=== PATIENT | female | born 1960 | race Caucasian/White ===

== ENCOUNTER 2021-09-23 10:11 | Emergency (ER) | payer OTHER, SELFPAY ==
--- NOTE | ~2021-09-23 | CT_ITS ---
EXAMINATION: CT brain wo con DATE: 09/23/2021 10:58 INDICATION: Headache. TECHNIQUE: Computed tomography (CT) of the head was performed without intravenous contrast. The mA wa s adjusted according to patient size. Iterative reconstruction technique was employed. The dose-lengt h product was 756.67 mGy-cm. COMPARISON: None FINDINGS: There are scattered areas of low attenuation in the cerebral white matter. There are bilate ral frontal subdural hematomas that are isodense and hypodense to plata matter measuring up to 9 mm in thickness on the left. There is no acute ischemic infarct or abnormal mass lesion. The ventricles ar e normal in size. There is mild mucosal thickening in the ethmoid sinuses. The mastoid air cells are normal. The orbits are normal. IMPRESSION: 1. Bilateral frontal subdural hematomas, likely subacute. 2. Moderate nonspecific cerebral white matter disease, which likely represents chronic small vessel i schemic disease. Reviewed, dictated and finalized at location [facility]. [facility] IMPRESSION: 1. Bilateral frontal subdural hematomas, likely subacute. 2. Moderate nonspecific cerebral white matter disease, which likely represents chronic small vessel ischemic disease.
[2021-09-23 10:16] VITALS: PULSE 78; RESP 18; O2SAT 99
[2021-09-23 10:23] VITALS: BP 180/110; BP 186/112
--- NOTE | 2021-09-23 10:24 | ECG_ITS ---
Measurements Intervals [place] Rate: 69 P: 15 MO: 151 QRS: -4 QRSD: 87 T: -3 QT: 370 QTc: 396 Interpretive Statements SINUS RHYTHM BORDERLINE T WAVE ABNORMALITY- ANT/INF LEADS BORDERLINE ECG Electronically Signed On 09-23-2021 12:31:08 [employer] by Kristian Michelle D.O.
[2021-09-23] MEDS: cloNIDine HCL 0.1 MG TABLET PO (10:27)
[2021-09-23] MEDS: Please add drug allergy info to patient profile. 1 EACH XX (10:32)
[2021-09-23 10:46] LABS: Basophils Percent Auto 0.6 % (0.2-1.2); Eosinophils Absolute Auto 0.1 K/mm3 (0-0.3); Eosinophils Percent Auto 1.9 % (0-4.4); Hematocrit 36.4 % (37.0-47.0); Hemoglobin 12.2 g/dL (12.0-15.0); Immature Granulocyte Absolute 0.01 K/mm3 (0.00-0.031); Immature Granulocyte Percent A 0.2 % (0-0.5); Lymphocytes Absolute Auto 1.15 K/mm3 (0.9-3.2); Lymphocytes Percent Auto 23.7 % (18.3-44.2); Mean Corpuscular HGB Conc 33.5 g/dl (32-36); Mean Corpuscular Hemoglobin 33.9 pg (26-34); Mean Corpuscular Volume 101.1 fl (80-100); Mean Platelet Volume 8.8 fl (7.4-10.4); Monocytes Absolute Auto 0.5 K/mm3 (0.1-0.6); Monocytes Percent Auto 9.5 % (2.6-8.5); Neutrophils Absolute Auto 3.1 K/mm3 (1.3-6.7); Neutrophils Percent Auto 64.1 % (45.5-73.1); Platelet Count Result 297 k/mm3 (150-375); Red Cell Distribution Width 16.8 % (11.5-14.5); White Blood Count 4.9 K/mm3 (4.5-10.0)
[2021-09-23 10:59] LABS: Alanine Aminotransferase 64 U/L (4-35); Albumin Level 4.6 g/dL (3.5-5.1); Alkaline Phosphatase 137 U/L (38-126); Anion Gap 10 mmol/L (8-16); Aspartate Amino Transferase 53 U/L (14-36); Bilirubin,Total 0.5 mg/dL (0.2-1.3); Blood Urea Nitrogen 17 mg/dL (7-17); Carbon Dioxide 25 mmol/L (22-30); Chloride 103 mmol/L (98-107); Estimated CRCL calculation 89 ml/min; Estimated Glomerular Filt Rate > 60; Glucose 123 mg/dL (65-110); Potassium 4.4 mmol/L (3.4-5.0); Sodium 138 mmol/L (137-145)
[2021-09-23 11:04] VITALS: BP 184/97; PULSE 67; RESP 18; O2SAT 99
[2021-09-23] MEDS: hydrALAZINE HCL 20 MG/ML VIAL 10 MG IV PUSH (11:05)
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
[2021-09-23 12:14] VITALS: BP 141/93; PULSE 79; RESP 18; O2SAT 99
[2021-09-23 12:46] VITALS: BP 142/95; PULSE 78; RESP 18; O2SAT 99
== END 2021-09-23 12:49 | disposition home or self-care (01) ==
PROVIDERS: Physician Assistant; Emergency Provider Family Medicine
DX: I10 Essential (primary) hypertension (principal); Z87.820 Personal history of traumatic brain injury; R90.82 White matter disease, unspecified; R94.31 Abnormal electrocardiogram [ECG] [EKG]; H40.9 Unspecified glaucoma
CPT/HCPCS: 36415; 70450; 80053; 85025; 93005; 96374; 99284; A9270; J0360